=== PATIENT | male | born 1970 | race Caucasian/White ===

== ENCOUNTER 2018-01-29 23:32 | Emergency (ER) | payer OTHER ==
[~2018-01-29] VITALS: Ht 175.3 cm; Wt 84.1 kg
[2018-01-29 23:48] VITALS: BP 124/79
== END 2018-01-30 00:29 ==
LOC: ER 23:33
DX: Z02.89 Encounter for other administrative examinations (principal); F10.129 Alcohol abuse with intoxication, unspecified
CPT/HCPCS: 99283

== ENCOUNTER 2020-01-20 07:51 | Emergency (ER) | payer BC ==
[~2020-01-20] VITALS: Ht 175.3 cm; Wt 81.8 kg
[2020-01-20 07:53] VITALS: BP 139/81
[2020-01-20] MEDS ORDERED: TETanus/Pertussis (Acell)/Diphther VAC/PF (Tdap-Adult) 0.5ml syringe IMVAC ONE (08:05)
[2020-01-20] MEDS ORDERED: LIDOcaine 1% W/epiNEPHrine 1:200,000 10ml vial IJ ONE (08:05)
--- NOTE | 2020-01-20 08:10 | NUR ---
Dr Rojas at bedside for I&D.
[2020-01-20] MEDS ORDERED: SULF1TAB49 PO ×2 (08:24→08:34)
== END 2020-01-20 08:42 | disposition home or self-care (01) ==
LOC: ER 07:51
DX: L02.414 Cutaneous abscess of left upper limb (principal); L02.416 Cutaneous abscess of left lower limb; L03.114 Cellulitis of left upper limb; L03.116 Cellulitis of left lower limb; Z88.2 Allergy status to sulfonamides
CPT/HCPCS: 10061; 90471; 90715; 99284